=== PATIENT | male | born 1960 | race Caucasian/White ===

== ENCOUNTER 2018-11-28 10:20 | Emergency (ER) | payer BC ==
[2018-11-28 10:34] VITALS: BP 151/93; PULSE 93; TEMP 98.1; BMI 29.0
[2018-11-28] MEDS ORDERED: MECLIZINE HCL 25 MG TABLET (FP) PO ONE (11:07)
--- NOTE | 2018-11-28 11:07 | PDOC ---
History of Present Illness - General Chief Complaint: Lightheaded Stated Complaint: DIZZINESS Time Seen by Provider: 11/28/18 10:32 History Source: Patient Exam Limitations: No Limitations - History of Present Illness Initial Comments: 11/28/18 11:09 PCP: Doesn't recall, [employer] Consult[employer]: Doesn't recall HPI: 58yo M with PMH MA 10 years ago, s/p stent, HTN, HLD presenting with 2 hours of sudden onset positional dizziness. 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 Denies weakness, pain, nausea, vomiting, chest pain, palpitations, SOB, recent illness, tinnitus, changes in hearing, aural fullness , headache, fevers / chills, or prior episodes of similar symptoms. Last stress test / ECHO remote. Patient endorses using exercise to manage his multiple medical conditions and doesn't follow up / take medication. Endorses good food and water intake. BGM was 119 OVEN HEATER. All: NKDA Meds: denies PMH: denies, "used to have HTN/HLD" PSH: PCI, no other surgery SHx: never smoker, occasional ETOH, denies illicits FHx: denies Past History - Travel Traveled outside of the country in the last 30 days: No Close contact w/someone who was outside of country & ill: No - Past Medical History Allergies/Adverse Reactions: Allergies Allergy/AdvReac Type Severity Reaction Status Date / Time No Known Allergies Allergy Verified 11/28/18 11:04 Home Medications: Ambulatory Orders Meclizine HCl 25 mg PO QID PRN #20 tablet 11/28/18 Review of Systems - Review of Systems Able to Perform ROS?: Yes Is the patient limited Pakistani proficient: Yes Constitutional: Yes: Weight Stable. No: Chills, Diaphoresis, Fever, Loss of Appetite, Weakness HEENTM: No: Eye Pain, Blurred Vision, Recent change in vision, Double Vision, Ear Pain, Nose Pain, Nose Congestion, Tinnitus, Hearing Loss, Throat Pain Respiratory: No: Cough, Shortness of Breath, Wheezing Cardiac (ROS): No: Chest Pain, Edema, Irregular Heart Rate, Palpitations, Chest Tightness ABD/GI: No: Constipated, Diarrhea, Nausea, Poor Appetite, Poor Fluid Intake, Vomiting : No: Burning, Dysuria, Discharge Musculoskeletal: No: Back Pain, Joint Pain, Muscle Pain, Muscle Weakness Neurological: Yes: See HPI, Unsteady Gait, Dizziness. No: Headache, Numbness, Paresthesia, Tingling, Weakness Psychiatric: No: Anxiety, Depression, Emotional Problems, Change in Appetite Endocrine: No: Excessive Sweating, Flushing, Increased Thirst, Increased Urine, Change in Weight Hematologic/Lymphatic: No: Anemia, Blood Clots, Easy Bleeding, Easy Bruising All Other Systems: Reviewed and Negative *Physical Exam - Physical Exam Comments: 11/28/18 11:26 Afebrile, hypertensive to 151/93, otherwise HDS GEN: WDWN man, appears stated age, no acute distress HEENT: EOMI + lateral nystagmus, PERRLA, normal morphologies, no trauma, MMM CV: RRR, nl s1s2, no murmurs appreciated Pulm: CTA bl, normal WOB, no wheezes / rales / rhonchi Abd: soft, nontender, nondistended Pulses: 2+ radial and PT Ext: WWP, no clubbing / cyanosis / edema Neuro: CN2-12 intact, strength and sensation to light touch preserved throughout extremities, normal cpwvrv-lodi-yagqly / rapid alternating movements / heel-fox, no pronator drift, patellar and biceps reflexes present, no dysarthria, normal phonation, alert and oriented, will assess gait following medication/IVF ED Treatment Course - LABORATORY CBC & Chemistry Diagram: 11/28/18 11:52 11/28/18 11:52 Medical Decision Making - Medical Decision Making 11/28/18 11:18 58yo M with PMH MA s/p stent (10 years ago), HTN, HLD, presenting with positional dizziness. History notable for sudden onset symptoms, no prior episodes, positional / movement association, absence of nausea/vomiting, sensation of being drunk. Physical exam notable for stable vitals, absence of cerebellar signs, normal CV/pulm exam, normal cranial nerves and strength/ sensation, + lateral nystagmus. DDX: most likely BPPV, meniere disease (less likely w/o other symptoms), r/o central vertigo (no cerebellar signs), vestibular neuritis (no recent illnesses), cardiogenic presyncope / arrhythmia, dehydration. BGM was 119 OVEN HEATER, hypoglycemia unlikely. -CP, CBC, CMP -EKG -1L IVF -25mg Meclizine 11/28/18 12:13 -Patient reassessed, walked to bathroom with normal gait, now asymptomatic -EKG: Normal rate, NSR, normal axis, normal intervals, normal morphologies, no ischemic changes -Ate breakfast tray, drank water, took meclizine -Patient requesting to go home as he feels improved -Labs pending 11/28/18 12:39 -CBC without leukocytosis or anemia 11/28/18 13:03 -Troponin negative, electrolytes within acceptable ranges, LFTs/renal normal Dipso: Home with neuro followup and RX for meclizine Discharge - Discharge Information Problems reviewed: Yes Clinical Impression/Diagnosis: Dizziness of unknown etiology Condition: Good Disposition: HOME - Admission No - Additional Discharge Information Prescriptions: Meclizine HCl 25 mg PO QID PRN #20 tablet PRN Reason: Vertigo - Follow up/Referral Referrals: Aiden Ferrell MD [Primary Care Provider] - Sherrie De Luna MD [Staff Physician] - - Patient Discharge Instructions Patient Printed Discharge Instructions: DI for Benign Paroxysmal Positional Vertigo Additional Instructions: You were seen in the ED and found to have symptoms of vertigo. A prescription for meclizine has been sent to your pharmacy. Please fill this and take as directed. Please call the provided neurologist in the next 1-2 days to arrange an appointment for further evaluation. Follow up with your primary care doctor in the next week. Please return to the ED for new or worsening symptoms including but not limited to; weakness, difficulty walking, changes in your speech or vision. - Post Discharge Activity
[2018-11-28] MEDS ORDERED: SODIUM CHLORIDE 0.9% 500 ML INFUS.BAG IV ONE (11:16)
[2018-11-28] MEDS ORDERED: MECLIZINE HCL 25 MG TABLET (FP) ONE (11:32)
--- NOTE | 2018-11-28 11:36 | PDOC ---
Documentation entered by Garbiel Quijano SCRIBE, acting as scribe for Momo Maza MD. Momo Maza MD: This documentation has been prepared by the Samm schwarz Daniel, SCRIBE, under my direction and personally reviewed by me in its entirety. I confirm that the documentation accurately reflects all work, treatment, procedures, and medical decision making performed by me. Attending Attestation - Resident Resident Name: LuisRobert - ED Attending Attestation I have performed the following: I have examined & evaluated the patient, The case was reviewed & discussed with the resident, I agree w/resident's findings & plan, Exceptions are as noted - HPI HPI: 11/28/18 11:30 The patient is a 58 year old male with a past medical history of [place] s/p stents 10 years ago here today for evaluation of dizziness. The patient reports that he had an episode of dizziness when he was at work today. He states that he felt some dizziness while he was climbing a ladder which got worse when he descended from the ladder and lasted for a few seconds. He notes that he felt better when he sat down and that his dizziness returned for a few seconds when he stood up again. He describes the dizziness as feeling drunk and feelin oswaldo balance. He notes feeling fine on his drive to work and states that he did not eat any breakfast and only had a coffee this morning. Denies previous episodes of dizziness. Patient denies headache. Denies fever, chills. Denies chest pain, shortness of breath. Denies nausea, vomiting, diaphoersis, diarrhea, melena, dysuria, back pain, neck pain, abdominal pain. Allergies: NKA - Physicial Exam PE: 11/28/18 11:30 GENERAL: The patient is awake, alert, and fully oriented, Nontoxic - in no acute distress. HEAD: Normocephalic, atraumatic. EYES: extraocular movements intact, sclera anicteric, conjunctiva clear. ENT: Normal voice, dry mucous membranes. NECK: Normal range of motion, supple LUNGS: Breath sounds equal, clear to auscultation bilaterally. No wheezes, no rhonchi, no rales. HEART: Regular rate and rhythm, without murmur, rub or gallop. ABDOMEN: Soft, nontender, No guarding, no rebound.No CVA tenderness EXTREMITIES: Normal range of motion, no edema. No cyanosis. No erythema, or tenderness. NEUROLOGICAL: No facial assymetry, Normal speech, PSYCH: Normal mood, normal affect. SKIN: Warm, Dry, normal turgor, - Medical Decision Making 11/28/18 11:17 58y M hx of CAD, ?HTN/HL presents with episode of dizziness/lightheadedness and sensation of 'being drunk' earlier when getting off a ladder - lasting for seconds at a time before resolving without associated headache, cp, palpitations , melena/bpr, vision or speech changes - and sx resolved after sittin or staying still. exam unremakble beside dry mm, including normal neuro exam and normal cerebellar exam suspct benign vertigo vs dehydration, consider arrythmia, anemia, metabolic derangement will give meclizine, fluids will ck labs, ekg will reassess Heart Score/ECG Review - ECG Impressions Comment:: 11/28/18 11:35 Twelve-lead EKG was performed and reviewed by me. There is normal sinus rhythm with a normal rate. rate of 86 The axis is normal. The intervals are normal. There is normal R wave progression There are no ST or T wave abnormalities. Impression: Normal twelve-lead EKG
[2018-11-28 12:28] LABS: BASO % 0.3 % (0-2.0); EOS % 0.3 % (0-4.5); HEMATOCRIT 45.5 % (35.4-49); HEMOGLOBIN 15.4 GM/dL (11.7-16.9); LYMPH % 16.7 % (8-40); MCH 29.4 pg (25.7-33.7); MCHC 33.8 g/dl (32.0-35.9); MEAN CELL VOLUME 87.1 fl (80-96); MEAN PLT VOLUME 7.9 fl (7.5-11.1); MONO % 4.4 % (3.8-10.2); NEUT % 78.3 % (42.8-82.8); PLATELET COUNT 246 K/MM3 (134-434); RBC 5.23 M/mm3 (4.00-5.60); RDW 13.5 % (11.9-15.9); WHITE BLOOD COUNT 9.1 K/mm3 (4.0-10.0)
[2018-11-28 12:59] LABS: ALBUMIN 4.1 g/dl (3.4-5.0); ALK PHOS 97 U/L (45-117); ANION GAP 7 MMOL/L (8-16); BILIRUBIN,TOTAL 0.4 mg/dL (0.2-1); BLOOD UREA NITROGEN 14.8 mg/dL (7-18); CALCIUM 8.5 mg/dL (8.5-10.1); CHLORIDE 102 mmol/L (98-107); CO2 27 mmol/L (21-32); CREATININE 0.9 mg/dL (0.55-1.3); GLUCOSE,RANDOM 135 mg/dL (74-106); SGOT/AST 26 U/L (15-37); SGPT/ALT 44 U/L (13-61); SODIUM 135 mmol/L (136-145); TOT PROT 7.7 g/dl (6.4-8.2)
--- NOTE | 2018-11-28 16:16 | EKG ---
Test Reason : Blood Pressure : / mmHG Vent. Rate : 086 BPM Atrial Rate : 086 BPM P-R Int : 204 ms QRS Dur : 110 ms QT Int : 374 ms P-R-T Axes : 036 022 051 degrees QTc Int : 447 ms NORMAL SINUS RHYTHM NORMAL ECG WHEN COMPARED WITH ECG OF 25-NOV-2010 09:23, NO SIGNIFICANT CHANGE WAS FOUND Confirmed by XIAO PELAEZ MD ([id number]) on 11/28/2018 4:15:46 PM Referred By: Confirmed By:XIAO PELAEZ MD
== END 2018-11-28 13:20 | disposition home or self-care (01) ==
LOC: JER 10:20
DX: R42 Dizziness and giddiness (principal); I25.10 Atherosclerotic heart disease of native coronary artery without angina pectoris; I10 Essential (primary) hypertension; Z95.5 Presence of coronary angioplasty implant and graft; I25.2 Old myocardial infarction; E78.5 Hyperlipidemia, unspecified
CPT/HCPCS: 36415; 80053; 82550; 84484; 85025; 93005; 93010; 99283-25

== ENCOUNTER 2020-12-03 15:03 | Emergency (ER) | payer BC ==
[2020-12-03 15:17] VITALS: BMI 28.1
[2020-12-03 16:38] LABS: CHLORIDE 101 mmol/L (98-107); SODIUM 137 mmol/L (136-145)
[2020-12-03 16:39] LABS: BASO % 0.2 % (0-2.0); EOS % 0.6 % (0-4.5); HEMOGLOBIN 15.2 GM/dL (11.7-16.9); INR 0.98 (0.83-1.09); LYMPH % 15.8 % (8-40); MCH 30.1 pg (25.7-33.7); MCHC 34.6 g/dl (32.0-35.9); MEAN CELL VOLUME 86.9 fl (80-96); MEAN PLT VOLUME 8.3 fl (7.5-11.1); NEUT % 70.4 % (42.8-82.8); PLATELET COUNT 224 10^3/uL (134-434); PROTHROMBIN TIME (PATIENT) 12.1 SEC (9.7-13.0); RBC 5.06 M/mm3 (4.00-5.60); RDW 13.7 % (11.9-15.9); WHITE BLOOD COUNT 10.3 K/mm3 (4.0-10.0)
[2020-12-03 16:40] LABS: ALBUMIN 3.8 g/dl (3.4-5.0); CALCIUM 8.2 mg/dL (8.5-10.1)
[2020-12-03 16:41] LABS: ANION GAP 11 MMOL/L (8-16); BLOOD UREA NITROGEN 13.8 mg/dL (7-18); CO2 24 mmol/L (21-32)
[2020-12-03 16:42] LABS: ACTIVATED PTT 29.8 SECONDS (25.2-36.5)
[2020-12-03 16:43] LABS: GLUCOSE,RANDOM 90 mg/dL (74-106)
[2020-12-03 16:44] LABS: CREATININE 0.7 mg/dL (0.55-1.3); SGOT/AST 234 U/L (15-37); SGPT/ALT 672 U/L (13-61)
[2020-12-03 16:45] LABS: BILIRUBIN,TOTAL 5.4 mg/dL (0.2-1); TOT PROT 7.9 g/dl (6.4-8.2)
[2020-12-03 16:46] LABS: ALK PHOS 165 U/L (45-117)
[2020-12-03 16:48] LABS: LIPASE 12345 U/L (73-393)
[2020-12-03] MEDS ORDERED: SODIUM CHLORIDE 1,000 ML IV STA (17:52)
[2020-12-03] MEDS ORDERED: CIPROFLOXACIN 400 MG/D5W 400 MG/200 ML IVPB IVPB ONE (17:52)
[2020-12-03 21:24] VITALS: BP 147/92; PULSE 89; TEMP 98.7
== END 2020-12-03 21:24 | disposition short-term general hospital (02) ==
LOC: JER 15:03
PROC: 3E03329 Introduction of Other Anti-infective into Peripheral Vein, Percutaneous Approach (ICD-10-PCS; principal; 2020-12-03)
PROC: 3E0337Z Introduction of Electrolytic and Water Balance Substance into Peripheral Vein, Percutaneous Approach (ICD-10-PCS; 2020-12-03)
DX: R10.9 Unspecified abdominal pain (principal)
CPT/HCPCS: 36415; 76705-TC; 80053; 82550; 83690; 84484; 85025; 85610; 85730; 86850; 86900; 86901; 99284-25